=== PATIENT | female | born 1950 | race Caucasian/White ===

== ENCOUNTER → 2017-12-28 | Outpatient (CLI) | payer MEDICARE, BC ==
[~2017-12-28] MED LIST: ASPI81CH PO; BRILINTA90 MG PO; LISI20 PO; LOVA40 PO; Lisinopril2.5 MG PO; METO25ER PO; NITR.6SL SL
[2017-12-29 09:24] LABS: Candida species (DNA Probe) Negative (NEGATIVE); G. vaginalis (DNA Probe) Negative (NEGATIVE); T. vaginalis (DNA Probe) Negative (NEGATIVE)
== END ==
LOC: LAB SHORT 13:44 → LAB 13:44
PROVIDERS: Nurse Practitioner Family
DX: R10.9 Unspecified abdominal pain (principal)
CPT/HCPCS: 87480; 87510; 87660

== ENCOUNTER 2021-06-04 16:33 | Inpatient (IN) | payer MEDICARE, BC ==
[~2021-06-04] VITALS: Ht 162.6 cm; Wt 57.3 kg
[2021-06-04 18:15] LABS: BASOPHILS ABSOLUTE AUTO 0.07 K/mm3 (0.00-0.23); BASOPHILS PERCENT AUTO 1 % (0-2); EOSINOPHILS ABSOLUTE AUTO 0.15 K/mm3 (0.00-0.68); EOSINOPHILS PERCENT AUTO 2 % (0-6); Hemoglobin 14.6 g/dL (11.5-16.0); IMMATURE GRAN ABSOLUTE AUTO 0.02 K/mm3 (0.00-0.10); IMMATURE GRAN PERCENT AUTO 0 % (0-1); LYMPHOCYTES ABSOLUTE AUTO 1.26 K/mm3 (0.84-5.20); LYMPHOCYTES PERCENT AUTO 20 % (21-46); MONOCYTES PERCENT AUTO 16 % (4-13); Mean Corpuscular HGB 32.4 pg (26.0-34.0); Mean Corpuscular HGB Conc 34.8 g/dL (31.5-36.5); Mean Corpuscular Volume 93 fL (80-100); Mean Platelet Volume 8.7 fL (9.1-12.4); NEUTROPHILS ABSOLUTE AUTO 3.88 K/mm3 (1.96-9.15); NEUTROPHILS PERCENT AUTO 61 % (41-73); Platelet Count 176 K/mm3 (150-400); RDW Coefficient Variation 12.9 % (11.7-14.2); RDW Standard Deviation 44.1 fL (35.1-46.3); White Blood Cell Count 6.38 K/mm3 (4.00-11.30)
[2021-06-04 18:45] LABS: Alanine Aminotransfer (ALT/SGP 63 U/L (12-78); Albumin, Blood 3.5 g/dL (3.4-5.0); Albumin/Globulin Ratio 1.2 (0.8-1.8); Alk Phos 60 U/L (50-136); Anion Gap 8 mmol/L (6-16); Aspartate Aminotrans (AST/SGOT 52 U/L (12-37); Bilirubin, Total 0.9 mg/dL (0.1-1.0); Blood Urea Nitrogen 21 mg/dL (8-24); CO2, Blood 33 mmol/L (21-32); Calcium, Blood 7.7 mg/dL (8.5-10.1); Chloride, Blood 83 mmol/L (98-108); Creatinine, Blood 0.92 mg/dL (0.40-1.00); Globulin, Blood 2.8 g/dL (2.2-4.0); Glomerular Filtration Rate >60 (60-); Glucose, Blood 120 mg/dL (70-99); Potassium, Blood 3.8 mmol/L (3.5-5.5); Sodium, Blood 124 mmol/L (136-145); Total Protein, Blood 6.3 g/dL (6.4-8.2)
[2021-06-05 00:24] LABS: CHOL/HDL RATIO 1.4; Cholesterol 152 mg/dL (50-200); HDL Cholesterol 106 mg/dL (>39); LDL/HDL RATIO 0.3; Low Density Lipoprotein Chol 37 mg/dL (0-110); Triglycerides 45 mg/dL (30-160); Troponin I 0.079 ng/mL (0.000-0.040); Very Low Density Lipoprot Chol 9 mg/dL (6-32)
[2021-06-05 05:47] LABS: BASOPHILS ABSOLUTE AUTO 0.07 K/mm3 (0.00-0.23); BASOPHILS PERCENT AUTO 1 % (0-2); EOSINOPHILS ABSOLUTE AUTO 0.15 K/mm3 (0.00-0.68); EOSINOPHILS PERCENT AUTO 3 % (0-6); Hematocrit 40.9 % (33.0-51.0); Hemoglobin 14.2 g/dL (11.5-16.0); IMMATURE GRAN ABSOLUTE AUTO 0.01 K/mm3 (0.00-0.10); IMMATURE GRAN PERCENT AUTO 0 % (0-1); LYMPHOCYTES PERCENT AUTO 23 % (21-46); MONOCYTES ABSOLUTE AUTO 0.81 K/mm3 (0.16-1.47); MONOCYTES PERCENT AUTO 14 % (4-13); Mean Corpuscular HGB 32.7 pg (26.0-34.0); Mean Corpuscular HGB Conc 34.7 g/dL (31.5-36.5); Mean Corpuscular Volume 94 fL (80-100); Mean Platelet Volume 8.7 fL (9.1-12.4); NEUTROPHILS ABSOLUTE AUTO 3.43 K/mm3 (1.96-9.15); NEUTROPHILS PERCENT AUTO 60 % (41-73); Platelet Count 143 K/mm3 (150-400); RDW Standard Deviation 44.9 fL (35.1-46.3); Red Blood Cell Count 4.34 M/mm3 (3.80-5.20); White Blood Cell Count 5.77 K/mm3 (4.00-11.30)
[2021-06-05 06:18] LABS: Influenza A, PCR NEGATIVE (NEGATIVE); Influenza B, PCR NEGATIVE (NEGATIVE); Resp Syncytial Virus, PCR NEGATIVE (NEGATIVE); SARS-Cov-2 (COVID-19) PCR, MMC NEGATIVE (NEGATIVE)
[2021-06-05 06:19] LABS: Anion Gap 14 mmol/L (6-16); Blood Urea Nitrogen 19 mg/dL (8-24); Bun/Creatinine Ratio 21.7 (12.0-20.0); CO2, Blood 30 mmol/L (21-32); Calcium, Blood 7.6 mg/dL (8.5-10.1); Chloride, Blood 83 mmol/L (98-108); Creatinine, Blood 0.88 mg/dL (0.40-1.00); Glomerular Filtration Rate >60 (60-); Glucose, Blood 102 mg/dL (70-99); Potassium, Blood 3.1 mmol/L (3.5-5.5); Sodium, Blood 127 mmol/L (136-145); Troponin I 0.078 ng/mL (0.000-0.040)
[2021-06-05] MEDS ORDERED: FURO20 PO (11:51)
--- NOTE | 2021-06-05 12:22 | NUR ---
Echocardiogram completed.
--- NOTE | 2021-06-05 18:26 | NUR ---
PATIENT IS ALERT AND ORIENTED AND COOPERATIVE WITH CARE. THE PATIENT'S WAS AT THE BEDSIDE DURING VISITING HOURS. CARIOLOGY CONSULT WAS PLACED AND DR. STACK SAW THE PATIENT TODAY. PLAN IS FOR ANGIOGRAM TOMORROW. PATIENT ENDUCATION PRINTED OUT AND GIVEN TO THE PATIENT AND HER . PATIENT IS INDEPENDENT IN HER ROOM. C/O LIGHTHEADEDNESS, DR. TURNER NOTIFIED. WILL CONTINUE TO MONITOR
[2021-06-05] MEDS ORDERED: OCUVITE BLUE L1 EACH PO (21:06)
--- NOTE | 2021-06-05 21:08 | NUR ---
SUPPLEMENTS PT REPORTED THAT SHE TAKES TWO SUPPLEMENTS THAT SHE FORGOT TO MENTION TO THE DOCTOR. LUTEIN 25 MG DAILY AND BILBERRY 440 MG BID. SHE REPORTS THAT SHE TAKES BOTH FOR EYE HEALTH. UPDATED MED REC WITH LUTEIN BUT WAS UNABLE TO LOCATE BILBERRY IN OUR SYSTEM.
[2021-06-05 21:38] LABS: Bun/Creatinine Ratio 21.7 (12.0-20.0); Creatinine, Blood 0.92 mg/dL (0.40-1.00); Potassium, Blood 3.8 mmol/L (3.5-5.5)
[2021-06-06 04:59] LABS: BASOPHILS ABSOLUTE AUTO 0.05 K/mm3 (0.00-0.23); BASOPHILS PERCENT AUTO 1 % (0-2); EOSINOPHILS ABSOLUTE AUTO 0.11 K/mm3 (0.00-0.68); EOSINOPHILS PERCENT AUTO 2 % (0-6); Hematocrit 38.6 % (33.0-51.0); Hemoglobin 13.4 g/dL (11.5-16.0); IMMATURE GRAN ABSOLUTE AUTO 0.01 K/mm3 (0.00-0.10); IMMATURE GRAN PERCENT AUTO 0 % (0-1); LYMPHOCYTES ABSOLUTE AUTO 1.29 K/mm3 (0.84-5.20); LYMPHOCYTES PERCENT AUTO 22 % (21-46); MONOCYTES ABSOLUTE AUTO 0.88 K/mm3 (0.16-1.47); MONOCYTES PERCENT AUTO 15 % (4-13); Mean Corpuscular HGB 32.8 pg (26.0-34.0); Mean Corpuscular HGB Conc 34.7 g/dL (31.5-36.5); Mean Corpuscular Volume 94 fL (80-100); Mean Platelet Volume 9.2 fL (9.1-12.4); NEUTROPHILS ABSOLUTE AUTO 3.45 K/mm3 (1.96-9.15); NEUTROPHILS PERCENT AUTO 60 % (41-73); Platelet Count 150 K/mm3 (150-400); RDW Coefficient Variation 12.9 % (11.7-14.2); RDW Standard Deviation 44.5 fL (35.1-46.3); Red Blood Cell Count 4.09 M/mm3 (3.80-5.20); White Blood Cell Count 5.79 K/mm3 (4.00-11.30)
[2021-06-06 05:21] LABS: Albumin, Blood 3.2 g/dL (3.4-5.0); Anion Gap 10 mmol/L (6-16); Blood Urea Nitrogen 17 mg/dL (8-24); Bun/Creatinine Ratio 21.2 (12.0-20.0); CO2, Blood 32 mmol/L (21-32); Calcium, Blood 8.1 mg/dL (8.5-10.1); Chloride, Blood 82 mmol/L (98-108); Glomerular Filtration Rate >60 (60-); Glucose, Blood 101 mg/dL (70-99); Magnesium, Blood 1.6 mg/dL (1.6-2.4); Potassium, Blood 3.3 mmol/L (3.5-5.5); Sodium, Blood 124 mmol/L (136-145)
--- NOTE | 2021-06-06 05:41 | NUR ---
SHIFT SUMMARY PT SLEPT MUCH OF THE NIGHT. NPO AT MIDNIGHT FOR ANGIO TODAY. TELEMETRY MONITORING. PER HOT ROLL LAMINATOR PT IS SINUS RHYTHM WITH INVERTED T WAVES AND PVC'S AT 88. THIS IS UNCHANGED SINCE ADMISSION. NO COMPLAINTS OF CHEST PAIN OR SOB. PT DOES STATE THAT SHE INTERMITTENTLY FEELS LIGHT HEADED. VITAL SIGNS STABLE. NO ACUTE CHANGES THIS EVENING. WILL CONTINUE TO MONITOR.
--- NOTE | 2021-06-06 11:04 | NUR ---
PATIENT REPORT GIVEN TO FLEET SERVICE MANAGER NATHEN PADGETT VIA TELEPHONE
--- NOTE | 2021-06-06 13:26 | NUR ---
CARE ASSSUMPTION / RETURN FROM POWERTRAIN CONTROL SYSTEMS ENGINEER PT BROUGHT TO PCU-20 BY BED FROM POWERTRAIN CONTROL SYSTEMS ENGINEER @ APPROX 1220. PT A&O X4. VSS. SPO2 > 92% ON RA. MONITOR SHOWS SR, HR 90's. R RADIAL ACCESS SITE W/ TR BAND & ARM BOARD IN PLACE. ACCESS SITE WNL, NO BLEEDING, NO HEMATOMA. WILL CONTINUE TO MONITOR.
--- NOTE | 2021-06-06 18:42 | NUR ---
SHIFT SUMMARY PT A&O X4. VSS. SPO2 > 92% ON RA. MONITOR SHOWING SR, HR 90's. R RADIAL ACCESS SITE W/ TR BAND RECOVERY WNL, TRANSPARENT DRESSING & ARM BOARD IN PLACE. NO EVENTS THIS SHIFT.
[2021-06-07 03:39] LABS: Hematocrit 38.7 % (33.0-51.0); Hemoglobin 13.4 g/dL (11.5-16.0); Mean Corpuscular HGB 32.4 pg (26.0-34.0); Mean Corpuscular HGB Conc 34.6 g/dL (31.5-36.5); Mean Corpuscular Volume 94 fL (80-100); Mean Platelet Volume 8.8 fL (9.1-12.4); Platelet Count 143 K/mm3 (150-400); RDW Coefficient Variation 12.7 % (11.7-14.2); RDW Standard Deviation 43.8 fL (35.1-46.3); Red Blood Cell Count 4.14 M/mm3 (3.80-5.20); White Blood Cell Count 6.47 K/mm3 (4.00-11.30)
[2021-06-07 03:57] LABS: Anion Gap 9 mmol/L (6-16); Blood Urea Nitrogen 15 mg/dL (8-24); Bun/Creatinine Ratio 18.8 (12.0-20.0); CO2, Blood 31 mmol/L (21-32); Calcium, Blood 8.4 mg/dL (8.5-10.1); Chloride, Blood 84 mmol/L (98-108); Glomerular Filtration Rate >60 (60-); Glucose, Blood 107 mg/dL (70-99); Magnesium, Blood 1.7 mg/dL (1.6-2.4); Phosphorus, Blood 2.9 mg/dL (2.5-4.9); Potassium, Blood 3.3 mmol/L (3.5-5.5); Sodium, Blood 124 mmol/L (136-145)
--- NOTE | 2021-06-07 06:13 | NUR ---
SHIFT SUMMARY ASSUMED CARE OF PT AT 1900. PT IS A/OX4. HEART SOUNDS REGULAR, LUNG SOUNDS CLEAR. PT WAS INDEPENDNT TO BATHROOM. NO NEW COMPLAINTS. VITAL SIGNS WNL. CALL LIGHT IN REACH, BED IN LOWEST POSITION.
[2021-06-07] MEDS ORDERED: ATOR40TA PO (14:53)
[2021-06-07] MEDS ORDERED: AZIT500 PO (14:55)
[2021-06-07] MEDS ORDERED: DOCUZEN 8.6-501 EACH PO (14:56)
[2021-06-07] MEDS ORDERED: VISBIOME 112.51 EACH PO (14:57)
[2021-06-07] MEDS ORDERED: VITAMIN D5000 UNIT PO (14:58)
[2021-06-07] MEDS ORDERED: POTA10T PO (14:59)
[2021-06-07] MEDS ORDERED: TORSE20 PO (15:00)
--- NOTE | 2021-06-07 16:33 | NUR ---
DISCHARGE SUMMARY PT A&Ox4; CALM AND COOPERATIVE WITH CARE. PT RESTING IN BED, UP TO BATHROOM WITH SBA. PT DENIES PAIN, CHEST PAIN, SOB, NASUEA AND DIZZINESS. PT FITTED FOR A LIFEVEST THIS AM. VSS. NO OTHER ACUTE CHANGES NOTED. PT EUDCATED ON DISCHARGE INSTRUCTIONS FOLLOW UP APPOINTMENTS, MEDICATIONS, CURRENT ILLNESS, POST ANGIO CARE, WOUND CARE AND DISCHARGE INSTRUCTIONS. PT PROVIDED HAND OUTS ON CONGESTIVE HEART FAILURE, ANGIO AND MEDICATIONS. PT LEFT ROOM AT APPROX 1625 VIA WHEELCHAIR.
== END 2021-06-07 16:25 | disposition home or self-care (01) | DRG 286 ==
LOC: ER 16:33 → MEDS 22:40 → ERHOLD 22:40 → MEDS 06-05 11:49 → ICUW 06-06 08:41 → PCU 06-06 10:01
PROVIDERS: Internal Medicine; Physician Assistant; ADMIT Family Medicine
PROC: 4A033BC Measurement of Arterial Pressure, Coronary, Percutaneous Approach (ICD-10-PCS; principal; 2021-06-06)
PROC: B2111ZZ Fluoroscopy of Multiple Coronary Arteries using Low Osmolar Contrast (ICD-10-PCS; 2021-06-06)
DX: I11.0 Hypertensive heart disease with heart failure (principal); I50.23 Acute on chronic systolic (congestive) heart failure; J18.9 Pneumonia, unspecified organism; E87.1 Hypo-osmolality and hyponatremia; I24.8 Other forms of acute ischemic heart disease; I47.2 Ventricular tachycardia; Z20.822 Contact with and (suspected) exposure to COVID-19; E78.5 Hyperlipidemia, unspecified; I25.10 Atherosclerotic heart disease of native coronary artery without angina pectoris; E87.6 Hypokalemia; E83.42 Hypomagnesemia; Z88.0 Allergy status to penicillin; Z88.2 Allergy status to sulfonamides; Z88.1 Allergy status to other antibiotic agents; I25.2 Old myocardial infarction; Z95.5 Presence of coronary angioplasty implant and graft
CPT/HCPCS: 0241U; 36415; 71045; 80048; 80053; 80061; 80069; 83735; 83880; 84132; 84145; 84295; 84443; 84484; 85025; 85027; 85347; 93005; 93010; 93306; 93454; 93571; 96372; 96374; 96375; 99152; 99153; 99285-25; A9270; C1769; C1887; C1894; J0696; J1644; J1650; J1940; J2250; J3010; J3475; J7030; J7040; J7050; Q9967

== ENCOUNTER 2021-06-12 09:54 | Emergency (ER) | payer MEDICARE, BC ==
[~2021-06-12] VITALS: Ht 162.6 cm; Wt 58.1 kg
[~2021-06-12 09:54] MED LIST changes: +ATOR40TA PO; +AZIT500 PO; +DOCUZEN 8.6-501 EACH PO; +FURO20 PO; +OCUVITE BLUE L1 EACH PO; +POTA10T PO; +TORSE20 PO; +VISBIOME 112.51 EACH PO; +VITAMIN D5000 UNIT PO
[2021-06-12 10:46] LABS: BASOPHILS ABSOLUTE AUTO 0.05 K/mm3 (0.00-0.23); BASOPHILS PERCENT AUTO 1 % (0-2); EOSINOPHILS ABSOLUTE AUTO 0.08 K/mm3 (0.00-0.68); EOSINOPHILS PERCENT AUTO 1 % (0-6); Hematocrit 41.6 % (33.0-51.0); Hemoglobin 14.9 g/dL (11.5-16.0); IMMATURE GRAN ABSOLUTE AUTO 0.02 K/mm3 (0.00-0.10); IMMATURE GRAN PERCENT AUTO 0 % (0-1); LYMPHOCYTES ABSOLUTE AUTO 0.99 K/mm3 (0.84-5.20); LYMPHOCYTES PERCENT AUTO 17 % (21-46); MONOCYTES ABSOLUTE AUTO 0.67 K/mm3 (0.16-1.47); MONOCYTES PERCENT AUTO 12 % (4-13); Mean Corpuscular HGB 32.6 pg (26.0-34.0); Mean Corpuscular HGB Conc 35.8 g/dL (31.5-36.5); Mean Corpuscular Volume 91 fL (80-100); Mean Platelet Volume 9.4 fL (9.1-12.4); NEUTROPHILS PERCENT AUTO 68 % (41-73); Platelet Count 199 K/mm3 (150-400); RDW Coefficient Variation 12.4 % (11.7-14.2); RDW Standard Deviation 41.2 fL (35.1-46.3); Red Blood Cell Count 4.57 M/mm3 (3.80-5.20); White Blood Cell Count 5.71 K/mm3 (4.00-11.30)
[2021-06-12 11:17] LABS: Albumin, Blood 3.8 g/dL (3.4-5.0); Albumin/Globulin Ratio 1.2 (0.8-1.8); Bilirubin, Total 0.9 mg/dL (0.1-1.0); Bun/Creatinine Ratio 32.1 (12.0-20.0); Calcium, Blood 8.8 mg/dL (8.5-10.1); Globulin, Blood 3.2 g/dL (2.2-4.0); Potassium, Blood 3.9 mmol/L (3.5-5.5)
[2021-06-12 11:19] LABS: Source, Urine Clean Catch
[2021-06-12 11:30] LABS: Bilirubin, Urine Neg (Neg); Blood, Urine Neg (Neg); Glucose Qualitative, Urine Neg (Neg); Ketones, Urine Neg (Neg); Leukocyte Esterase, Urine Neg (Neg); Nitrite, Urine Neg (Neg); Protein, Urine Neg (Neg); Urobilinogen, Urine NORM (Normal)
[2021-06-12 11:41] LABS: Appearance, Urine Clear (Clear); Color, Urine Pale Yellow (P-Yellow)
== END 2021-06-12 13:34 | disposition home or self-care (01) ==
LOC: ER 09:54
PROVIDERS: Physician Assistant
DX: E87.1 Hypo-osmolality and hyponatremia (principal); R79.9 Abnormal finding of blood chemistry, unspecified; I25.10 Atherosclerotic heart disease of native coronary artery without angina pectoris; I11.0 Hypertensive heart disease with heart failure; I50.9 Heart failure, unspecified; E78.5 Hyperlipidemia, unspecified; Z87.42 Personal history of other diseases of the female genital tract; Z88.0 Allergy status to penicillin; Z88.2 Allergy status to sulfonamides; Z79.82 Long term (current) use of aspirin
CPT/HCPCS: 36415; 80053; 81003; 83690; 85025; 99283; J7030

== ENCOUNTER 2021-09-24 16:03 | Inpatient (IN) | payer MEDICARE, BC ==
[~2021-09-24] VITALS: Ht 162.6 cm; Wt 58.4 kg
[~2021-09-24 16:03] MED LIST changes: +ENTRESTO 24 MG1 EACH PO; +TRAZ50 PO
[2021-09-24 16:34] LABS: BASOPHILS PERCENT AUTO 2 % (0-2); EOSINOPHILS ABSOLUTE AUTO 0.08 K/mm3 (0.00-0.68); EOSINOPHILS PERCENT AUTO 1 % (0-6); Hematocrit 44.9 % (33.0-51.0); Hemoglobin 14.8 g/dL (11.5-16.0); IMMATURE GRAN ABSOLUTE AUTO 0.01 K/mm3 (0.00-0.10); IMMATURE GRAN PERCENT AUTO 0 % (0-1); LYMPHOCYTES ABSOLUTE AUTO 1.81 K/mm3 (0.84-5.20); LYMPHOCYTES PERCENT AUTO 27 % (21-46); MONOCYTES ABSOLUTE AUTO 0.71 K/mm3 (0.16-1.47); MONOCYTES PERCENT AUTO 11 % (4-13); Mean Corpuscular HGB 31.4 pg (26.0-34.0); Mean Corpuscular Volume 95 fL (80-100); Mean Platelet Volume 10.4 fL (9.1-12.4); NEUTROPHILS PERCENT AUTO 59 % (41-73); Platelet Count 130 K/mm3 (150-400); RDW Coefficient Variation 16.2 % (11.7-14.2); RDW Standard Deviation 57.2 fL (35.1-46.3); Red Blood Cell Count 4.71 M/mm3 (3.80-5.20); White Blood Cell Count 6.61 K/mm3 (4.00-11.30)
[2021-09-24 16:52] LABS: Albumin, Blood 3.5 g/dL (3.4-5.0); Albumin/Globulin Ratio 1.1 (0.8-1.8); Bilirubin, Total 1.6 mg/dL (0.1-1.0); Bun/Creatinine Ratio 31.8 (12.0-20.0); Calcium, Blood 9.2 mg/dL (8.5-10.1); Creatinine, Blood 1.32 mg/dL (0.40-1.00); Globulin, Blood 3.3 g/dL (2.2-4.0); Total Protein, Blood 6.8 g/dL (6.4-8.2)
[2021-09-24 17:07] LABS: International Normalized Ratio 1.26
[2021-09-24] MEDS ORDERED: VITAMIN D5000 UNIT PO (21:20)
--- NOTE | 2021-09-24 23:52 | NUR ---
SVT 2315 STUDENT RN KIRIT WITH PATIENT TO BATHROOM. PT AXO. STABLE. 2320 UPON RETURNING TO BED, STUDENT RN WITNESSED PT LOSE CONCIOUSNESS AND SLUMP BACK. STUDENT RN ASSISTED PT TO LAY DOWN IN BED SAFELY AND CALLED FOR HELP. THIS RN TO ROOM ALONG WITH JUDO TEACHER, ERIK Skelton RN, STORMY Tamez RN, ETC. HR NOTED TO BE 190BPM - 200BPM. 2321 PT RESPONDS TO VERBAL COMMANDS. FOLLOWING COMMANDS. PT DENIES FEELINGS OF LIGHTHEADEDNESS, CP/PRESSURE, ETC AND IS ASKING "WHAT IS GOING ON?". VITALS SIGNS OBTAINED, PT WITH HYPOTENSION WITH MAP >65. 232 JUDO TEACHER ON PHONE WITH DR BEARD, ORDERS OBTAINED FOR LOPRESSOR 5MG IV PUSH X1 GIVEN. STAFF IN ROOM ATTEMPTING TO COMPLETE VAGAL MANEUVERS UNSUCCESFULLY. CRASH CART IN ROOM. PADS IN PLACE. HR STILL >190. 2324 - 5MG IV LOPRESSOR ADMINISTERED. DR BEARD TO ROOM TO ASSESS PT. 2324 PT CONVERTS TO SR WITH PVC'S. HR 70'S. MILD HYPOTENSION NOTED. ORDERS RECEIVED FOR PRN IV LOPRESSOR PUSHES. PT NOW BEDREST AT THIS TIME. PADS LEFT ON PATIENT CURRENTLY. BP REMAINS HYPOTENSIVE BUT MAP REMAINS >65, TRNDING CURRENTLY UPWARD AT TIME OF WRITING (6188). QUESTIONS FROM PT ANSWERED. PT NOW RESTING IN BED QUIETELY. BED ALARM ON.
[2021-09-25 04:13] LABS: BASOPHILS ABSOLUTE AUTO 0.06 K/mm3 (0.00-0.23); BASOPHILS PERCENT AUTO 1 % (0-2); EOSINOPHILS ABSOLUTE AUTO 0.02 K/mm3 (0.00-0.68); EOSINOPHILS PERCENT AUTO 0 % (0-6); Hematocrit 41.2 % (33.0-51.0); Hemoglobin 13.7 g/dL (11.5-16.0); IMMATURE GRAN ABSOLUTE AUTO 0.02 K/mm3 (0.00-0.10); IMMATURE GRAN PERCENT AUTO 0 % (0-1); LYMPHOCYTES ABSOLUTE AUTO 1.09 K/mm3 (0.84-5.20); LYMPHOCYTES PERCENT AUTO 19 % (21-46); MONOCYTES ABSOLUTE AUTO 0.67 K/mm3 (0.16-1.47); MONOCYTES PERCENT AUTO 12 % (4-13); Mean Corpuscular HGB 31.4 pg (26.0-34.0); Mean Corpuscular HGB Conc 33.3 g/dL (31.5-36.5); Mean Corpuscular Volume 94 fL (80-100); Mean Platelet Volume 10.3 fL (9.1-12.4); NEUTROPHILS ABSOLUTE AUTO 3.95 K/mm3 (1.96-9.15); NEUTROPHILS PERCENT AUTO 68 % (41-73); Platelet Count 117 K/mm3 (150-400); RDW Standard Deviation 55.9 fL (35.1-46.3); Red Blood Cell Count 4.37 M/mm3 (3.80-5.20); White Blood Cell Count 5.81 K/mm3 (4.00-11.30)
[2021-09-25 04:36] LABS: Albumin, Blood 3.2 g/dL (3.4-5.0); Albumin/Globulin Ratio 1.1 (0.8-1.8); Bilirubin, Direct 0.7 mg/dL (0.0-0.3); Bilirubin, Indirect 0.8 mg/dL (0.1-0.7); Bilirubin, Total 1.5 mg/dL (0.1-1.0); Bun/Creatinine Ratio 31.2 (12.0-20.0); Calcium, Blood 9.2 mg/dL (8.5-10.1); Creatinine, Blood 1.44 mg/dL (0.40-1.00); Globulin, Blood 2.8 g/dL (2.2-4.0)
--- NOTE | 2021-09-25 05:54 | NUR ---
PATIENT SUMMARY PATIENT IS A&O X4. CALM AND COOPERATIVE WITH CARE. NEW ADMIT FROM ED DUE TO ACUTE SYSTOLIC CHF AND NSVT. PATIENT WAS CARDIOVERTED IN ED. PATIENT HAD PACEMAKER/DEFIBRILLATOR PLACED ON 09/18/21. DRESSING IS INTACT WITH DRIED BLOOD ON OPSITE. NO SWELLING/REDNESS/BLEEDING OR PAIN WITH PALPATION NOTED AT SITE. PATIENT HAD EPISODE OF SVT @2320 DURING THIS SHIFT. ABLE TO CONVERT WITH IV PUSH LOPRESSOR. SEE PREVIOUS EVENT NOTE FOR MORE DETAILS. LOPRESSOR LOWERED BP WITH SBP 70-80S WITH MAP REMAINING >65. PATIENT'D VITALS RETURNED TO ADMISSION BASELINE WITH SBP 100-110S. SR W PVCS ON TELE WITH HR 70-80S. AFEBRILE. O2 SATS >95% ON ROOM AIR. DENIES CP/PRESSURE. PRN LOPRESSOR ADDED TO EMAR FOR EPISODES OF SVT. PATIENT WAS PREVIOUSLY INDEPENDENT BUT SVT EPISODE OCCURRED AFTER AMBULATION TO BATHROOM. PATIENT ON BEDREST AND NOW USING BEDPAN. PATIENT VERBALIZED UNDERSTANDING AND CALLS STAFF APPROPRIATELY. CALL LIGHT IN REACH AND BED IN LOWEST POSITION. WILL CONTINUE TO MONITOR FOR ANY CHANGES.
--- NOTE | 2021-09-25 06:56 | NUR ---
THIS RN HAS REVIEWED THE STUDENT RN'S CHARTING AND ASSESMENTS AND AGREE WITH ALL THAT IS CHARTED.
--- NOTE | 2021-09-25 12:05 | NUR ---
AM NOTE/TRANSFER OF CARE: PATIENT ALERT AND ORIENTED X4. NEURO WNL. PERRLA. ABLE TO MOVE ALL EXTREMITIES AND TURN SELF IN BED. UP TO BATHROOM WITH ONE PERSON STANDBY FOR SAFETY. ON ROOM AIR, LUNGS SOUNDING CLEAR AND DIM IN BASES. TELE SHOWING SINUS WITH PVC'S. HR 70-80'S. DENIES CHEST PAIN/PRESSURE. REPORTED SLIGHT DIZZINESS THIS AM THAT HAS IMPROVED THIS AFTERNOON. DENIES CHEST PAIN/PRESSURE. BP STABLE. UP TO BATHROOM TO VOID. SMALL AMOUNT OF URINE OUTPUT THIS AM WITH BOWEL MOVEMENT. TAKING PILLS WHOLE. TOLERATING PO DIET. NO EPISODES OF SVT THIS AM. DR. STACK IN MULTIPLE TIMES THIS AM TO ASSESS PATIENT AND PACER. PLAN FOR PATIENT TO FOLLOW UP OUTPATIENT IN ONE MONTH WITH DR. STACK. CALL LIGHT IN REACH. DENIES NEEDS AT THIS TIME. PLAN FOR TO COME GERM DRIER PATIENT WHEN DISCHARGE IS COMPLETE. REPORTED OFF TO SUKI DENG.
--- NOTE | 2021-09-25 12:43 | NUR ---
CARE ASSUMPTION THIS RN ASSUMED CARE FROM LUIZ RN AT 1130. VSS. SPO2 >90% ON RA. TELE SR HR 80S. PATIENT ALERT AND ORIENTED X4. PERRLA. NEURO INTACT. PATIENT DENIES CHEST PAIN/PRESSURE. STRONG RADIAL AND PEDIS PULSES BILATERALLY. PATIENT HAS +2EDEMA TO LOWER EXTREMITIES. MD STACK CAME IN TO SEE THE PATIENT, AND TOLD THE PATIENT TO HAVE A FOLLOW UP IN A MONTH WITH HIM. PATIENT LUNG SPUNDS CLEAR AND REPORTS NO SHORTNESS OF BREATH. ABD IS SOFT NONTENDER. SKIN IS CLEAN DRY AND INTACT. THIS RN AGREE WITH LUIZ RN SHIFT ASSESSMENT. CALL LIGHT IS WITHIN REACH AND BED IN LOWEST POSITION. WILL CONTINUE TO MONITOR AND PROVIDE CARE.
[2021-09-25] MEDS ORDERED: ELIQUIS5 M2 PO (15:19)
--- NOTE | 2021-09-25 16:02 | NUR ---
DISCHARGE THIS RN WENT OVER DISCHARGE EDUCATION WITH THE PATIENT AND PATIENT'S . THIS RN WENT OVER NEW MEDICATION, ELIQUIS, AND DOSE INCREASE OF TOPROLOL. PATIENT AND VERABLIZED UNDERSTANDING OF MEDICATION AND DOSE INCREASE. PATIENT EDUCATED ON FOLLOW UP APPOINTMENT WITH PROVIDER AND THAT REDUCING SYSTEM OPERATOR WILL CALL THEM TO SCHEDULE FOLLOW UP. MEDICATIONS FAXED TO PHARMACY. PATIETN LEFT VIA WHEELCHAIR AND IN NO DISTRESS WITH ALL PERSONAL BELONGINGS.
== END 2021-09-25 16:00 | disposition home or self-care (01) | DRG 291 ==
LOC: ER 16:03 → PCU 18:35
PROVIDERS: Physician Assistant; ADMIT Family Medicine
PROC: 4B02XTZ Measurement of Cardiac Defibrillator, External Approach (ICD-10-PCS; principal; 2021-09-24)
PROC: 5A2204Z Restoration of Cardiac Rhythm, Single (ICD-10-PCS; 2021-09-24)
DX: I11.0 Hypertensive heart disease with heart failure (principal); I50.23 Acute on chronic systolic (congestive) heart failure; I47.1 Supraventricular tachycardia; E87.1 Hypo-osmolality and hyponatremia; N17.9 Acute kidney failure, unspecified; I24.8 Other forms of acute ischemic heart disease; I48.91 Unspecified atrial fibrillation; I95.9 Hypotension, unspecified; R73.9 Hyperglycemia, unspecified; D69.6 Thrombocytopenia, unspecified; R79.89 Other specified abnormal findings of blood chemistry; E78.5 Hyperlipidemia, unspecified; I25.10 Atherosclerotic heart disease of native coronary artery without angina pectoris; I25.2 Old myocardial infarction; Z95.810 Presence of automatic (implantable) cardiac defibrillator; I42.9 Cardiomyopathy, unspecified; Z95.5 Presence of coronary angioplasty implant and graft; Z88.0 Allergy status to penicillin; Z88.1 Allergy status to other antibiotic agents; Z88.2 Allergy status to sulfonamides; Z79.82 Long term (current) use of aspirin; Z79.899 Other long term (current) drug therapy; Z85.43 Personal history of malignant neoplasm of ovary
CPT/HCPCS: 36415; 71045; 80048; 80053; 80076; 83036; 83735; 83880; 84484; 85025; 85610; 92960; 93005; 93010; 96365; 96375; 99285-25; A9270; J1650; J1940; J3010; J3475

== ENCOUNTER 2022-10-22 10:35 | Observation (INO) | payer MEDICARE, BC ==
[~2022-10-22] VITALS: Ht 160 cm; Wt 52.5 kg
[~2022-10-22 10:35] MED LIST changes: +ELIQUIS5 M2 PO
[2022-10-22 11:05] LABS: BASOPHILS ABSOLUTE AUTO 0.07 K/mm3 (0.00-0.23); BASOPHILS PERCENT AUTO 1 % (0-2); EOSINOPHILS ABSOLUTE AUTO 0.01 K/mm3 (0.00-0.68); EOSINOPHILS PERCENT AUTO 0 % (0-6); Hematocrit 45.6 % (33.0-51.0); Hemoglobin 15.1 g/dL (11.5-16.0); IMMATURE GRAN ABSOLUTE AUTO 0.02 K/mm3 (0.00-0.10); IMMATURE GRAN PERCENT AUTO 0 % (0-1); LYMPHOCYTES ABSOLUTE AUTO 0.89 K/mm3 (0.84-5.20); LYMPHOCYTES PERCENT AUTO 15 % (21-46); MONOCYTES ABSOLUTE AUTO 0.46 K/mm3 (0.16-1.47); MONOCYTES PERCENT AUTO 8 % (4-13); Mean Corpuscular HGB Conc 33.1 g/dL (31.5-36.5); Mean Corpuscular Volume 100 fL (80-100); Mean Platelet Volume 10.1 fL (9.1-12.4); NEUTROPHILS PERCENT AUTO 76 % (41-73); Platelet Count 183 K/mm3 (150-400); RDW Coefficient Variation 14.7 % (11.7-14.2); Red Blood Cell Count 4.57 M/mm3 (3.80-5.20); White Blood Cell Count 5.95 K/mm3 (4.00-11.30)
[2022-10-22 11:22] LABS: Albumin, Blood 3.8 g/dL (3.4-5.0); Albumin/Globulin Ratio 1.1 (0.8-1.8); Bilirubin, Total 1.8 mg/dL (0.1-1.0); Bun/Creatinine Ratio 37.4 (12.0-20.0); Calcium, Blood 10.1 mg/dL (8.5-10.1); Creatinine, Blood 2.19 mg/dL (0.40-1.00); Globulin, Blood 3.4 g/dL (2.2-4.0); Potassium, Blood 4.6 mmol/L (3.5-5.5); Total Protein, Blood 7.2 g/dL (6.4-8.2)
[2022-10-22] MEDS ORDERED: SPIR25 PO (18:02)
[2022-10-22] MEDS ORDERED: TORSE20 PO (18:03)
[2022-10-22] MEDS ORDERED: POTA10T PO (18:04)
[2022-10-22 18:59] VITALS: BP 89/63
--- NOTE | 2022-10-22 19:20 | NUR ---
ADMIT/ END OF SHIFT NOTE. PT ADMITTED FROM THE ED INTO ROOM PCU9. MET WITH CARDIOLOGY, NEW MEDS AND RECOMMENDATIONS PROVIDED. PT DENIES CP. PT REPORTS SOME DIZZINESS WITH MOVEMENT. HAS BEEN AT BEDSIDE SINCE ADMIT.
[2022-10-22 19:44] LABS: Magnesium, Blood 2.2 mg/dL (1.6-2.4); Phosphorus, Blood 4.4 mg/dL (2.5-4.9)
[2022-10-22 20:45] VITALS: BP 86/69
[2022-10-22 23:56] VITALS: BP 92/72
[2022-10-23 03:57] LABS: Hematocrit 40.9 % (33.0-51.0); Hemoglobin 13.9 g/dL (11.5-16.0); Mean Corpuscular HGB 33.1 pg (26.0-34.0); Mean Corpuscular Volume 97 fL (80-100); Mean Platelet Volume 10.4 fL (9.1-12.4); Platelet Count 166 K/mm3 (150-400); RDW Coefficient Variation 14.8 % (11.7-14.2); RDW Standard Deviation 53.1 fL (35.1-46.3); White Blood Cell Count 5.96 K/mm3 (4.00-11.30)
[2022-10-23 04:18] LABS: Albumin, Blood 3.3 g/dL (3.4-5.0); Albumin/Globulin Ratio 1.1 (0.8-1.8); Bilirubin, Total 1.7 mg/dL (0.1-1.0); Bun/Creatinine Ratio 36.2 (12.0-20.0); Calcium, Blood 9.4 mg/dL (8.5-10.1); Creatinine, Blood 2.4 mg/dL (0.40-1.00); Potassium, Blood 4.3 mmol/L (3.5-5.5); Total Protein, Blood 6.3 g/dL (6.4-8.2)
[2022-10-23 04:32] VITALS: BP 95/71
--- NOTE | 2022-10-23 05:23 | NUR ---
SHIFT SUMMARY THIS RN ASSUMED CARE OF PATIENT AT 1900. PATIENT ALERT AND ORIENTED FULLY. ABLE TO MAKE NEEDS KNOWN. BP STABLE WITH SBP 90'S AND MAP >70. SR WITH HR 70-80'S WHILE AT REST. 15 BEAT RUN OF SVT THIS AM AT 0503. PATIENT DENIES CHEST PAIN/PRESSURE. ENDORSES DIZZINESS AND SOB WITH ACTIVITY. STEADY GAIT NOTED WITH AMBULATION. BED IN LOWEST POSITION AND CALL LIGHT WITHIN REACH. THIS RN WILL CONTINUE TO MONITOR UNTIL SHIFT CHANGE AT 0700
[2022-10-23 08:02] VITALS: BP 91/73
[2022-10-23 11:31] VITALS: BP 86/70
[2022-10-23] MEDS ORDERED: LOSA25 PO (13:00)
--- NOTE | 2022-10-23 14:17 | NUR ---
Discharge note. Pt discharged home with her . Medications changes were done per Cardiology. Pt was educated on how to determine the MAP and when to hold medications. Pt and were both comfortable with new reccomendations and had no questions. Pt is already in contact with outpatient cardiology office. Encouraged PCP follow up as well. All belongings were taken with the Pt.
== END 2022-10-23 14:15 | disposition home or self-care (01) ==
LOC: ER 10:35 → PCU 13:31
PROVIDERS: Emergency Medicine; ADMIT Internal Medicine
DX: I48.20 Chronic atrial fibrillation, unspecified (principal); R55 Syncope and collapse; R77.8 Other specified abnormalities of plasma proteins; N17.9 Acute kidney failure, unspecified; I13.0 Hypertensive heart and chronic kidney disease with heart failure and stage 1 through stage 4 chronic kidney disease, or unspecified chronic kidney disease; N18.30 Chronic kidney disease, stage 3 unspecified; I50.22 Chronic systolic (congestive) heart failure; R74.01 Elevation of levels of liver transaminase levels; I42.8 Other cardiomyopathies; I25.10 Atherosclerotic heart disease of native coronary artery without angina pectoris; I95.89 Other hypotension; I25.2 Old myocardial infarction; E78.5 Hyperlipidemia, unspecified; Z95.810 Presence of automatic (implantable) cardiac defibrillator; Z88.0 Allergy status to penicillin; Z88.2 Allergy status to sulfonamides; Z88.8 Allergy status to other drugs, medicaments and biological substances; Z85.43 Personal history of malignant neoplasm of ovary; Z79.01 Long term (current) use of anticoagulants
CPT/HCPCS: 36415; 71045; 80053; 83735; 83880; 84100; 84484; 85025; 85027; 93005; 93010; 99285-25; A9270; G0378

== ENCOUNTER 2022-10-31 00:13 | Observation (INO) | payer MEDICARE, BC ==
[2022-10-31] VITALS (7 sets, daily range): BP systolic 83–95; BP diastolic 62–80
[~2022-10-31] VITALS: Ht 162.6 cm; Wt 50.8 kg
[~2022-10-31 00:13] MED LIST changes: +LOSA25 PO; +SPIR25 PO
[2022-10-31 00:46] LABS: BASOPHILS ABSOLUTE AUTO 0.06 K/mm3 (0.00-0.23); BASOPHILS PERCENT AUTO 1 % (0-2); EOSINOPHILS ABSOLUTE AUTO 0.12 K/mm3 (0.00-0.68); EOSINOPHILS PERCENT AUTO 2 % (0-6); Hematocrit 43.2 % (33.0-51.0); Hemoglobin 14.3 g/dL (11.5-16.0); IMMATURE GRAN ABSOLUTE AUTO 0.02 K/mm3 (0.00-0.10); IMMATURE GRAN PERCENT AUTO 0 % (0-1); LYMPHOCYTES ABSOLUTE AUTO 1.16 K/mm3 (0.84-5.20); LYMPHOCYTES PERCENT AUTO 19 % (21-46); MONOCYTES PERCENT AUTO 11 % (4-13); Mean Corpuscular HGB 31.8 pg (26.0-34.0); Mean Corpuscular HGB Conc 33.1 g/dL (31.5-36.5); Mean Corpuscular Volume 96 fL (80-100); NEUTROPHILS ABSOLUTE AUTO 4.06 K/mm3 (1.96-9.15); NEUTROPHILS PERCENT AUTO 66 % (41-73); Platelet Count 139 K/mm3 (150-400); RDW Coefficient Variation 15.6 % (11.7-14.2); RDW Standard Deviation 55.2 fL (35.1-46.3); Red Blood Cell Count 4.49 M/mm3 (3.80-5.20); White Blood Cell Count 6.12 K/mm3 (4.00-11.30)
[2022-10-31 01:04] LABS: Albumin, Blood 3.5 g/dL (3.4-5.0); Albumin/Globulin Ratio 1.1 (0.8-1.8); Bilirubin, Total 1.5 mg/dL (0.1-1.0); Bun/Creatinine Ratio 36.6 (12.0-20.0); Calcium, Blood 9.4 mg/dL (8.5-10.1); Creatinine, Blood 2.32 mg/dL (0.40-1.00); Globulin, Blood 3.2 g/dL (2.2-4.0); Potassium, Blood 4.6 mmol/L (3.5-5.5); Total Protein, Blood 6.7 g/dL (6.4-8.2)
--- NOTE | 2022-10-31 06:46 | NUR ---
SHIFT SUMMARY PATIENT ALERT AND ORIENTED X4. PATIENT REPORTS BEING DIZZY WHEN SHE GETS UP, WAS ABLE TO WALK TO THE BATHROOM AND BACK WITH MINIMAL ASSISTANCE. PATIENT DENIES HAVING ANY CHEST PAIN OR DISCOMFORT. VITAL SIGNS STABLE, ON ROOM AIR, LUNG SOUNDS CLEAR. WILL CONTINUE TO MONITOR. CALL LIGHT WITHIN REACH.
--- NOTE | 2022-10-31 08:27 | NUR ---
AM NOTE: PATIENT ALERT AND ORIENTED X4. HARD OF HEARING, HEARS BETTER OUT OF RIGHT EAR. DENIES N/T. INTERMIT DIZZINESS THAT PATIENT STATES MAY BE RELATED TO "PLUGGED EARS". PERRLA. SBA TO BATHROOM. TELE SHOWING SR WITH HR 80'S. DENIES CHEST PAIN/PRESSURE. BP SOFT. NO SIGNS OF EDEMA. HISTORY OF AICD. MORNING CARDIAC MEDS GIVEN PER EMAR. PPP. ON ROOM AIR SATING ABOVE 94%. LUNGS SOUNDING CLEAR THROUGHOUT. NO COUGH OR SOB. EATING SMALL AMOUNT OF BREAKFAST. DENIES ABDOMINAL PAIN/NAUSEA. VOIDING WNL. BOWEL TONES PRESENT. CALL LIGHT IN REACH.
--- NOTE | 2022-10-31 10:33 | NUR ---
DR. POSADA BY TO SEE PATIENT THIS RN AT BEDSIDE.
--- NOTE | 2022-10-31 18:15 | NUR ---
SHIFT SUMMARY: PATIENT REMAINS ALERT AND ORIENTED. OVERALL STATES SHE FEELS VERY TIRED. ON ROOM AIR SATING ABOVE 95%. LUNGS REMAINS CLEAR. DENIES SOB ON EXCERTION. TELE REMAINS SR WITH HR 80'S. DR. ACKERMAN BY THIS AM AND SEE EMAR FOR ORDERS. EDUCATION PRINTED ON PATIENTS NEW MEDICATION AND REVIEWED WITH PATIENT BY THIS RN. BLOOD PRESSURES REMAINS SOFT BUT MAP REMAINS ABOVE 65. PATIENT DENIES FEELING DIZZY/FAINT AT REST AND WHEN UP TO BATHROOM. SBA TO RESTROOM. EATING AND VOIDING WNL. DENIES OVERALL PAINS. USING CALL LIGHT TO COMMUNICATE NEEDS. HOURLY ROUNDING. TO BEDSIDE THIS AM AND UPDATED BY THIS RN.
--- NOTE | 2022-10-31 20:46 | NUR ---
ASSUMED PT CARE FORM LUIZ DENG ON . PT IS A&OX4. ABLE TO MAKE NEEDS KNOWN AND FOLLOW DIRECTIONS. DENIES ANY SOB OR CHEST PAIN. HR IS SINUS RHYTHM IN THE 70'S. O2 SATS 100% ON RA. BP SOFT WITH SBP IN 80'S. PER LUIZ DENG PT TO RECEIVE CARDIAC MEDS LONG MAP IS > 65. TAKES PO PILLS WITHOUT DIFFICULTY WITH WATER. WARM BLANKET PROVIDED FOR COMFORT. DENIES NEEDS AT THIS TIME. CALL LIGHT IN REACH.
[2022-11-01 00:22] VITALS: BP 86/65
--- NOTE | 2022-11-01 00:36 | NUR ---
PT UP TO BATHROOM WITH STAND BY ASSIST. GAIT STEADY POSTURE ERECT. VOIDS WITHOUT DIFFICULTY. RETURNED TO BED. HR STABLE IN THE 80-90'S WHEN UP. NO COMPLAINTS OF CHEST PAIN. DENIES FURTHER NEEDS. CALL LIGHT IN REACH.
[2022-11-01 04:08] VITALS: BP 90/65
--- NOTE | 2022-11-01 05:28 | NUR ---
PT THROUGH MAJORITY OF NIGHT. NO COMPLAINTS OF CHEST PAIN OR SOB. NO ACUTE CHANGES NOTED THROUGHOUT THE NIGHT. CALL LIGHT IN REACH.
[2022-11-01 07:00] VITALS: BP 87/62
--- NOTE | 2022-11-01 07:13 | NUR ---
Received in room report from Noc RN. Patient is awake in bed and ia alert and oriented and is able to communicate her needs. She is independent in room and minimal assist with ADL's. She is on RA and sats >90%. She has pacer/defib to left upper chest and is in paced rhythm. Plan is for discharge later today after abs for new med. Patient denies any current needs. See EMR for VS. Patient GALO. She has 20ga IV to LAC and is flushed and SL'd.
[2022-11-01] MEDS ORDERED: CORLANOR5 MG PO (11:42)
--- NOTE | 2022-11-01 12:41 | NUR ---
Patient has been up in room with at bedside. Talked with Dr Patel and he stated ok to go home and Dr Beckman by and ordered discharge.. went to get meds from pharmacy and he is back now and gave her written discharge instructions and they returned understanding. IV pulled intact. She was taken out vis wheelchair and went home POV.
== END 2022-11-01 12:35 | disposition home or self-care (01) ==
LOC: ER 00:13 → PCU 00:14
PROVIDERS: Student in an Organized Health Care Education/Training Program; ADMIT Student in an Organized Health Care Education/Training Program
DX: I21.4 Non-ST elevation (NSTEMI) myocardial infarction (principal); I50.22 Chronic systolic (congestive) heart failure; I42.8 Other cardiomyopathies; I25.5 Ischemic cardiomyopathy; I48.0 Paroxysmal atrial fibrillation; N18.5 Chronic kidney disease, stage 5; I34.0 Nonrheumatic mitral (valve) insufficiency; E78.5 Hyperlipidemia, unspecified; I95.9 Hypotension, unspecified; I25.119 Atherosclerotic heart disease of native coronary artery with unspecified angina pectoris; Z88.2 Allergy status to sulfonamides; Z88.0 Allergy status to penicillin; I13.0 Hypertensive heart and chronic kidney disease with heart failure and stage 1 through stage 4 chronic kidney disease, or unspecified chronic kidney disease
CPT/HCPCS: 36415; 71046; 80053; 83880; 84484; 85025; 93005; 93010; A9270

== ENCOUNTER → 2022-12-10 | Outpatient (CLI) | payer MEDICARE, BC ==
[~2022-12-10] MED LIST changes: +CORLANOR5 MG PO
[2022-12-10 16:53] LABS: Amylase, Blood 67 U/L (25-115)
[2022-12-10 16:55] LABS: Alanine Aminotransfer (ALT/SGP 112 U/L (12-78); Albumin, Blood 3.2 g/dL (3.4-5.0); Albumin/Globulin Ratio 0.8 (0.8-1.8); Alk Phos 99 U/L (50-136); Anion Gap 15 mmol/L (6-16); Aspartate Aminotrans (AST/SGOT 84 U/L (12-37); Bilirubin, Direct 1.5 mg/dL (0.0-0.3); Bilirubin, Indirect 2.5 mg/dL (0.1-0.7); Blood Urea Nitrogen 77 mg/dL (8-24); Bun/Creatinine Ratio 39.3 (12.0-20.0); CO2, Blood 26 mmol/L (21-32); Calcium, Blood 9.7 mg/dL (8.5-10.1); Chloride, Blood 96 mmol/L (98-108); Cholesterol 104 mg/dL (50-200); Creatinine, Blood 1.96 mg/dL (0.40-1.00); Globulin, Blood 3.9 g/dL (2.2-4.0); Glomerular Filtration Rate 27 (60-); Glucose, Blood 118 mg/dL (70-99); HDL Cholesterol 52 mg/dL (>39); LDL/HDL RATIO 0.6; Low Density Lipoprotein Chol 31 mg/dL (0-110); Phosphorus, Blood 3.5 mg/dL (2.5-4.9); Potassium, Blood 3.2 mmol/L (3.5-5.5); Sodium, Blood 137 mmol/L (136-145); Total Protein, Blood 7.1 g/dL (6.4-8.2); Triglycerides 104 mg/dL (30-160); Very Low Density Lipoprot Chol 20 mg/dL (6-32)
[2022-12-12 05:08] LABS: HCV ANTIBODY Non Reactive (Non Reactive)
[2022-12-14 09:21] LABS: M-SPIKE, % Not Observed % (Not Observed); PROTEIN,TOTAL,URINE 49.6 mg/dL (Not Estab.)
== END ==
LOC: LAB SHORT 13:35 → LAB 13:35
PROVIDERS: Internal Medicine Nephrology
DX: N18.30 Chronic kidney disease, stage 3 unspecified (principal); N25.81 Secondary hyperparathyroidism of renal origin; E55.9 Vitamin D deficiency, unspecified; E78.00 Pure hypercholesterolemia, unspecified; R76.9 Abnormal immunological finding in serum, unspecified; R94.5 Abnormal results of liver function studies; R94.6 Abnormal results of thyroid function studies; D51.8 Other vitamin B12 deficiency anemias; D52.8 Other folate deficiency anemias; D50.9 Iron deficiency anemia, unspecified
CPT/HCPCS: 36415; 80053; 80061; 82150; 82248; 82306; 83690; 84100; 84156; 84166; 85018; 86317; 86803